=== PATIENT | female | born 1990 | race Caucasian/White ===

== ENCOUNTER 2016-09-26 00:50 | Emergency (ER) | payer OTHER ==
[~2016-09-26] VITALS: Ht 160 cm; Wt 97.8 kg
[~2016-09-26 00:50] MED LIST: CYCL-36 PO; IBUP800 PO; ZOLO25TA PO
[2016-09-26 00:59] VITALS: BP 122/85; PULSE 83; RESP 18; TEMP 97.8; O2SAT 97
[2016-09-26] MEDS ORDERED: TEGR200T PO (01:16)
--- NOTE | 2016-09-26 01:40 | PD ---
HPI Chief Complaint: Complaint Time Seen by Provider: 01:35 Travel History International Travel<30 days: No Contact w/Intl Traveler<30days: No Traveled to known affect area: No History of Present Illness HPI The patient is a 25-year-old female that was seen by her primary care physician , Dr. Genao, on the third of this month. She had 2 doses of Bactrim DS. She complains of rib pain in the left upper abdomen, a sharp pain and she is worried that she may be getting worse with a urine infection. She does have slight nausea but no fever, chills, vomiting or diarrhea. PFSH Past Medical History ADHD: No Bipolar Disorder: Yes Depression: Yes Cancer: No Diabetes: No Diminished Hearing: No Psychiatric: Yes ("BEHAVIORAL") Immunizations Current: Yes Migraines: Yes (EVERY DAY) Seizures: Yes (x1) Thyroid Disease: No Ulcer: No Tetanus Vaccination: Unknown ?: Unknown LMP: "last month", not sure exact time Past Surgical History Appendectomy: No Cholecystectomy: No Other Surgery: No Social History Alcohol Use: No Tobacco Use: Yes (states I smoke only someones cigs) Substance Use: No Allergies-Medications (Allergen,Severity, Reaction): Coded Allergies: No Known Allergies (Verified , 09/26/16) Reported Meds & Prescriptions Reported Meds & Active Scripts Active Reported Tegretol (Carbamazepine) 200 Mg Tab 200 Mg PO BID Review of Systems Except as stated in HPI: all other systems reviewed are Neg Physical Exam Narrative GENERAL: Well-nourished, well-developed patient in slight apparent distress with her left anterior rib pain. Her vital signs are normal. SKIN: Focused skin assessment warm/dry. HEAD: Normocephalic. EYES: No scleral icterus. No injection or drainage. NECK: Supple, trachea midline. No JVD or lymphadenopathy. CARDIOVASCULAR: Regular rate and rhythm without murmurs, gallops, or rubs. I can completely reproduce the patient's pain by pressing on the ends of the left lower ribs anteriorly. RESPIRATORY: Breath sounds equal bilaterally. No accessory muscle use. Lungs are clear to auscultation. GASTROINTESTINAL: Abdomen soft, non-tender, nondistended. No guarding or rebound is present. There is no flank tenderness present. MUSCULOSKELETAL: No cyanosis, or edema. BACK: Nontender without obvious deformity. No CVA tenderness. Data Data Last Documented VS Vital Signs Date Time Temp Pulse Resp B/P Pulse Ox O2 Delivery O2 Flow Rate FiO2 09/26/16 00:59 97.8 83 18 122/85 97 MDM Medical Decision Making Medical Screen Exam Complete: Yes Emergency Medical Condition: Yes Medical Record Reviewed: Yes Differential Diagnosis End of rib pain, fractured ribsunlikely, pneumonia, pyelonephritis Narrative Course The patient has tenderness on the end of the ribs. There is no evidence for fracture ribs, there is no trauma. Her lungs are clear and she does not have the clinical features of pneumonia. There is no flank tenderness and the patient at this time does not manifest symptoms of pyelonephritis. Diagnosis Primary Impression: Rib pain on left side Additional Impression: Cystitis Additional Instructions: Take the Motrin regular, 1 tablet 3 times daily. Follow-up next week with your primary care physician. Increase your liquid intake to establish a good urine flow through your kidneys. Med/Other Pt SpecificInfo: Prescription(s) given ([place]) Scripts Ibuprofen 600 Mg Lcc812 Mg PO TID #33 TAB Ref 0 Prov:Dillan Short MD 09/26/16 Disposition: 01 DISCHARGE HOME Condition: Stable Dillan Short MD Sep 26, 2016 01:40
[2016-09-26] MEDS ORDERED: IBUP-232 PO (01:44)
[2016-09-26] MEDS ORDERED: KETOROLAC TROMETHAMINE 60 MG/2 ML (IM) VIAL IM ONE (02:00)
== END 2016-09-26 02:04 | disposition home or self-care (01) ==
LOC: PHED 00:50
DX: R07.81 Pleurodynia (principal); N30.90 Cystitis, unspecified without hematuria; F31.9 Bipolar disorder, unspecified
CPT/HCPCS: 96372; 99284; J1885

== ENCOUNTER 2016-10-15 02:37 | Emergency (ER) | payer OTHER ==
[~2016-10-15] VITALS: Ht 160 cm; Wt 96.0 kg
[~2016-10-15 02:37] MED LIST changes: -CYCL-36 PO; +IBUP-232 PO; -IBUP800 PO; +TEGR200T PO; -ZOLO25TA PO
[2016-10-15 02:41] VITALS: BP 167/97; PULSE 73; RESP 16; TEMP 98.6; O2SAT 99
--- NOTE | 2016-10-15 04:26 | PD ---
HPI Chief Complaint: Complaint Time Seen by Provider: 04:11 Travel History International Travel<30 days: No Contact w/Intl Traveler<30days: No Traveled to known affect area: No History of Present Illness HPI 25 year-old female presents to the emergency department by private transportation for evaluation of UTI. Patient states she's been treated for urinary tract infection 3 weeks post still complains of urinary frequency. Patient is concerned she is . She denies fever chills nausea vomiting flank pain urgency or dysuria. Patient does not recall the name of for antibiotic. Patient has history of seizure disorder and anxiety depression and is prescribed Tegretol. Patient is not aware of when her last menstrual period occurred. Patient is unable to identify exacerbating or alleviating factors. Patient does not report any abnormal vaginal bleeding or discharge. PFSH Past Medical History Narrative Medical Bipolar disorder depression seizure migraine; no surgery; tobacco use ADHD: No Bipolar Disorder: Yes Depression: Yes Cancer: No Cardiovascular Problems: No Diabetes: No Diminished Hearing: No Psychiatric: Yes ("BEHAVIORAL") Immunizations Current: Yes Migraines: Yes (EVERY DAY) Seizures: Yes (x1) Thyroid Disease: No Ulcer: No ?: Not Past Surgical History Appendectomy: No Cholecystectomy: No Other Surgery: No Social History Alcohol Use: No Tobacco Use: Yes (states I smoke only someones cigs) Substance Use: No Allergies-Medications (Allergen,Severity, Reaction): Coded Allergies: No Known Allergies (Verified , 10/15/16) Reported Meds & Prescriptions Reported Meds & Active Scripts Active Ibuprofen 600 Mg Tab 600 Mg PO TID Reported Tegretol (Carbamazepine) 200 Mg Tab 200 Mg PO BID Review of Systems Except as stated in HPI: all other systems reviewed are Neg General / Constitutional: No: Fever, Chills HENT: No: Congestion Cardiovascular: No: Chest Pain or Discomfort Respiratory: No: Shortness of Breath Gastrointestinal: No: Nausea, Vomiting, Abdominal Pain Genitourinary: Positive: Frequency, No: Urgency, Dysuria, Flank Pain, Vaginal Bleeding Musculoskeletal: No: Myalgias, Arthralgias Skin: No Rash Neurologic: No: Weakness Psychiatric: No: Anxiety Hematologic/Lymphatic: No: Lymph Node Enlargement Physical Exam Narrative GENERAL: Well-developed well-nourished female in no acute distress no respiratory distress SKIN: Warm and dry. HEAD: Normocephalic. EYES: No scleral icterus. No injection or drainage. NECK: Supple, trachea midline. No JVD or lymphadenopathy. CARDIOVASCULAR: Regular rate and rhythm without murmurs, gallops, or rubs. RESPIRATORY: Breath sounds equal bilaterally. No accessory muscle use. GASTROINTESTINAL: Abdomen soft, non-tender, nondistended. MUSCULOSKELETAL: No cyanosis, or edema. BACK: Nontender without obvious deformity. No CVA tenderness. Data Data Last Documented VS Vital Signs Date Time Temp Pulse Resp B/P Pulse Ox O2 Delivery O2 Flow Rate FiO2 10/15/16 02:41 98.6 73 16 167/97 99 Room Air Orders Ed Urine Pregnancytest Poc (10/15/16 04:11) Urinalysis - C+S If Indicated (10/15/16 04:11) Labs Laboratory Tests Test 10/15/16 04:15 Urine Color LIGHT-YELLOW Urine Turbidity CLEAR Urine pH 6.5 Urine Specific [place] 1.004 Urine Protein NEG mg/dL Urine Glucose (UA) NEG mg/dL Urine Ketones NEG mg/dL Urine Occult Blood NEG Urine Nitrite NEG Urine Bilirubin NEG Urine Urobilinogen LESS THAN 2.0 MG/DL Urine Leukocyte Esterase SMALL Urine RBC 2 /hpf Urine WBC 2 /hpf Urine Squamous Epithelial 1 /hpf Cells Urine Bacteria RARE /hpf Microscopic Urinalysis Comment CULT NOT INDICATED MDM Medical Decision Making Medical Screen Exam Complete: Yes Emergency Medical Condition: Yes Medical Record Reviewed: Yes Interpretation(s) [id number] hCG: Negative Urinalysis: Small leukocyte Estrace rare bacteria, culture not indicated; no glucose no ketones Differential Diagnosis Urinary frequency, UTI, diabetes, Narrative Course Specimen collected for urinalysis and [id number] Diagnosis Primary Impression: Urinary frequency Referrals: Primary Care Physician call for appointment Patient Instructions: General Instructions Additional Instructions: Increase fluid hydration Follow-up with primary care provider Return to the emergency department for any concerns or change in condition Disposition: 01 DISCHARGE HOME Condition: Stable Maria Del Carmen Bowen MD Oct 15, 2016 04:26
[2016-10-15 04:27] LABS: BACTERIA, URINE RARE /hpf; BLOOD, URINE NEG (NEG); COMMENT (UR) CULT NOT INDICATED; CULTURE IF INDICATED CULT NOT INDICATED; GLUCOSE,URINE NEG (NEG); KETONE, URINE NEG (NEG); NITRITE,URINE NEG (NEG); PH, URINE 6.5 (5.0-8.5); SQUAMOUS EPITHELIAL CELL URINE 1 /hpf (0-5); URINE COLOR LIGHT-YELLOW (YELLW/STRAW)
== END 2016-10-15 04:39 | disposition home or self-care (01) ==
LOC: NEPC 02:37
DX: R35.0 Frequency of micturition (principal); G40.909 Epilepsy, unspecified, not intractable, without status epilepticus; F41.9 Anxiety disorder, unspecified; F31.9 Bipolar disorder, unspecified; F17.210 Nicotine dependence, cigarettes, uncomplicated; Z79.899 Other long term (current) drug therapy
CPT/HCPCS: 81001; 84703; 99283

== ENCOUNTER 2017-02-12 16:03 | Emergency (ER) | payer OTHER ==
[~2017-02-12] VITALS: Ht 160 cm; Wt 95.0 kg
[2017-02-12 16:05] VITALS: BP 180/76; PULSE 68; RESP 17; TEMP 98.6; O2SAT 100
[2017-02-12 16:13] VITALS: BP 136/86; PULSE 84; RESP 16; O2SAT 100
[2017-02-12 16:19] VITALS: BP 136/86; PULSE 79; RESP 16; O2SAT 100
[2017-02-12] MEDS ORDERED: SODIUM CHLORIDE 0.9% FLUSH 10 ML FLUSH IV FLUSH PRN (16:45)
--- NOTE | 2017-02-12 16:48 | PD ---
HPI Chief Complaint: Abdominal Pain Time Seen by Provider: 16:44 Travel History International Travel<30 days: No Contact w/Intl Traveler<30days: No Traveled to known affect area: No History of Present Illness HPI 26-year-old female presents to the ED for evaluation of abdominal pain with several bowel movements accompanied by palpitations of her heart and pain in the throat that radiates to the chest. Belly pain rated 8/10 maximally, described as cramping, resolved on presentation. She states that she woke up yesterday with the stomachache and had multiple nonbloody bowel movements. She doesn't know if these were loose are well formed. Having a bowel movement did not relieve her pain. She states that eventually her pain just faded away. She states that later she began to feel pain in her throat that radiated down into her chest and was accompanied by palpitations. She endorses similar symptoms with previous episodes of anxiety. She denies any pain on presentation. She denies risk of , states last menstrual period . PFSH Past Medical History ADHD: No Bipolar Disorder: Yes Depression: Yes Cancer: No Cardiovascular Problems: No Diabetes: No Diminished Hearing: No Psychiatric: Yes ("BEHAVIORAL") Immunizations Current: Yes Migraines: Yes (EVERY DAY) Seizures: Yes (x1) Thyroid Disease: No Ulcer: No Influenza Vaccination: No ?: Not LMP: 02/03/2017 Past Surgical History Surgical History: No Previous Surgery Appendectomy: No Cholecystectomy: No Other Surgery: No Social History Alcohol Use: No Tobacco Use: No Substance Use: No Allergies-Medications (Allergen,Severity, Reaction): Coded Allergies: No Known Allergies (Verified Adverse Reaction, Unknown, 02/12/17) Reported Meds & Prescriptions Reported Meds & Active Scripts Active Reported Tegretol (Carbamazepine) 200 Mg Tab 200 Mg PO BID Review of Systems Except as stated in HPI: all other systems reviewed are Neg Physical Exam Narrative GENERAL: Well-nourished, well-developed white female in no acute distress. SKIN: Focused skin assessment warm/dry. HEAD: Normocephalic. EYES: No scleral icterus. No injection or drainage. NECK: Supple, trachea midline. No JVD or lymphadenopathy. CARDIOVASCULAR: Regular rate and rhythm without murmurs, gallops, or rubs. CHEST: Nontender throughout without deformity or crepitus. RESPIRATORY: Breath sounds clear and equal bilaterally. No accessory muscle use. GASTROINTESTINAL: Abdomen soft, non-tender, nondistended. No palpable masses. Active bowel sounds. MUSCULOSKELETAL: No cyanosis, or edema. BACK: Nontender without obvious deformity. No CVA tenderness. Data Data Last Documented VS Vital Signs Date Time Temp Pulse Resp B/P (MAP) Pulse Ox O2 Delivery O2 Flow Rate FiO2 02/12/17 19:00 73 16 132/72 (92) 98 Room Air 02/12/17 16:05 98.6 Orders Orders Complete Blood Count With Diff (02/12/17 16:44) Comprehensive Metabolic Panel (02/12/17 16:44) Lipase (02/12/17 16:44) Urinalysis - C+S If Indicated (02/12/17 16:44) Iv Access Insert/Monitor (02/12/17 16:44) Ecg Monitoring (02/12/17 16:44) Oximetry (02/12/17 16:44) Sodium Chloride 0.9% Flush (Ns Flush) (02/12/17 16:45) Electrocardiogram (02/12/17 16:44) Ed Urine Pregnancytest Poc (02/12/17 16:44) Potassium Chloride (Kcl) (02/12/17 19:00) Calcium Carbonate (Oscal) (02/12/17 19:00) Urine Culture (02/12/17 19:45) Nitrofurantoin Monohyd Macrocr (Macrobid (02/12/17 20:30) Labs Laboratory Tests Test 02/12/17 17:40 02/12/17 19:45 White Blood Count 5.2 TH/MM3 Red Blood Count 4.70 MIL/MM3 Hemoglobin 13.7 GM/DL Hematocrit 41.1 % Mean Corpuscular Volume 87.4 FL Mean Corpuscular Hemoglobin 29.2 PG Mean Corpuscular Hemoglobin Concent 33.4 % Red Cell Distribution Width 13.4 % Platelet Count 133 TH/MM3 Mean Platelet Volume 11.7 FL Neutrophils (%) (Auto) 43.5 % Lymphocytes (%) (Auto) 43.1 % Monocytes (%) (Auto) 11.0 % Eosinophils (%) (Auto) 2.1 % Basophils (%) (Auto) 0.3 % Neutrophils # (Auto) 2.3 TH/MM3 Lymphocytes # (Auto) 2.2 TH/MM3 Monocytes # (Auto) 0.6 TH/MM3 Eosinophils # (Auto) 0.1 TH/MM3 Basophils # (Auto) 0.0 TH/MM3 CBC Comment DIFF FINAL Differential Comment Blood Urea Nitrogen 14 MG/DL Creatinine 0.92 MG/DL Random Glucose 86 MG/DL Total Protein 7.6 GM/DL Albumin 3.7 GM/DL Calcium Level 7.2 MG/DL Alkaline Phosphatase 77 U/L Aspartate Amino Transf (AST/SGOT) 19 U/L Alanine Aminotransferase (ALT/SGPT) 28 U/L Total Bilirubin 0.3 MG/DL Sodium Level 138 MEQ/L Potassium Level 3.1 MEQ/L Chloride Level 103 MEQ/L Carbon Dioxide Level 26.6 MEQ/L Anion Gap 8 MEQ/L Estimat Glomerular Filtration Rate 75 ML/MIN Protein Corrected Calcium 7.0 MG/DL Lipase 244 U/L Urine Color LIGHT-YELLOW Urine Turbidity HAZY Urine pH 6.0 Urine Specific [place] 1.010 Urine Protein NEG mg/dL Urine Glucose (UA) NEG mg/dL Urine Ketones NEG mg/dL Urine Occult Blood NEG Urine Nitrite NEG Urine Bilirubin NEG Urine Urobilinogen LESS THAN 2.0 MG/DL Urine Leukocyte Esterase MOD Urine RBC 1 /hpf Urine WBC 14 /hpf Urine Squamous Epithelial Cells 6 /hpf Urine Bacteria RARE /hpf Microscopic Urinalysis Comment CULTURE INDICATED MDM Medical Decision Making Medical Screen Exam Complete: Yes Emergency Medical Condition: Yes Differential Diagnosis Anxiety versus gastritis versus palpitations versus electrolyte abnormality versus other Narrative Course 26-year-old female presents to the ED for evaluation of abdominal pain with several bowel movements accompanied by palpitations of her heart and pain in the throat that radiates to the chest. Belly pain rated 8/10 maximally, described as cramping, resolved on presentation. She states that later she began to feel pain in her throat that radiated down into her chest and was accompanied by palpitations. She endorses similar symptoms with previous episodes of anxiety. She denies any pain on presentation. She denies risk of , states last menstrual period 02/03/17. Vitals reviewed. Physical exam is reassuring. EKG rate 67, sinus rhythm. LA interval 166, QRS 87, QTC 423. Normal axis. No acute ST changes. Reviewed by Dr. House. Urine test negative. CBC: WBC 5.2. Hemoglobin 13.7. CMP potassium 3.1. Calcium protein corrected 7.0. Patient was administered 1 g of calcium and 40 mEq potassium by mouth. UA: Hazy, moderate leukocyte esterase, WBCs 14, rare bacteria. Culture pending. I discussed the results of the workup with the patient. Patient was prescribed Macrobid 100 mg twice a day 7 days. First dose administered in the ED. She is instructed to eat a varied diet, consider daily supplement, take all antibiotics as prescribed, follow-up with the primary care provider. I warned her that calcium could cause constipation and she should take MiraLAX to counteract this. She indicated understanding of the instructions and is agreeable to the care plan. The patient is stable and discharged home. Diagnosis Primary Impression: Palpitations Additional Impressions: Hypocalcemia Hypokalemia UTI (urinary tract infection) Qualified Codes: N39.0 - Urinary tract infection, site not specified Referrals: Primary Care Physician Additional Instructions: Rest, hydrate. Return to normal, gentle activity as tolerated. Eat a varied diet. Consider a daily vitamin supplement. If you take calcium supplements, take Miralax to counteract constipation. Take all antibiotics as prescribed. Follow-up with your primary care provider. Return to the ED for worsening symptoms or any urgent or emergent medical condition. Med/Other Pt SpecificInfo: Prescription(s) given Scripts Nitrofurantoin Monohydrate Macrocrystals (Macrobid) 100 Mg Cap 100 MG PO BID for Infection for 7 Days, #14 CAP 0 Refills Prov: Humaira House MD 02/12/17 Disposition: 01 DISCHARGE HOME Condition: Stable Lina Elmore Feb 12, 2017 16:47
[2017-02-12 18:49] LABS: BICARBONATE 26.6 MEQ/L (21.0-32.0); POTASSIUM 3.1 MEQ/L (3.5-5.1); TOTAL BILIRUBIN ADULT 0.3 MG/DL (0.2-1.0)
[2017-02-12 18:58] LABS: AUTOMATED NEUTROPHIL # 2.3 TH/MM3 (1.8-7.7); BASOPHIL % 0.3 % (0.0-2.0); EOSINOPHIL # 0.1 TH/MM3 (0-0.4); EOSINOPHIL % 2.1 % (0.0-4.0); HEMATOCRIT 41.1 % (35.0-46.0); HEMO FLAGS DIFF FINAL; LYMPH % 43.1 % (9.0-44.0); LYMPHOCYTE # 2.2 TH/MM3 (1.0-4.8); MEAN CELL VOLUME 87.4 FL (80.0-100.0); MEAN CORPUSCULAR HEMOGLOBIN 29.2 PG (27.0-34.0); MEAN CORPUSCULAR HGB CONC 33.4 % (32.0-36.0); NEUT % 43.5 % (16.0-70.0); PLATELET COUNT 133 TH/MM3 (150-450); RED CELL DISTRIBUTION WIDTH 13.4 % (11.6-17.2); WHITE BLOOD COUNT 5.2 TH/MM3 (4.0-11.0)
[2017-02-12 19:00] VITALS: BP 132/72; PULSE 73; RESP 16; O2SAT 98
[2017-02-12] MEDS ORDERED: CALCIUM CARBONATE 1.25 GM (CA 500 MG) TAB PO ONE (19:00)
[2017-02-12] MEDS ORDERED: POTASSIUM CHLORIDE 20 MEQ CONTROLLED RELEASE TAB PO ONE (19:00)
[2017-02-12 19:59] LABS: BACTERIA, URINE RARE /hpf; BLOOD, URINE NEG (NEG); COMMENT (UR) CULTURE INDICATED; CULTURE IF INDICATED CULTURE INDICATED; GLUCOSE,URINE NEG (NEG); KETONE, URINE NEG (NEG); NITRITE,URINE NEG (NEG); SQUAMOUS EPITHELIAL CELL URINE 6 /hpf (0-5); URINE COLOR LIGHT-YELLOW (YELLW/STRAW)
[2017-02-12] MEDS ORDERED: MACR100C2 PO (20:23)
[2017-02-12] MEDS ORDERED: NITROFURANTOIN MONOHYD MACROCR 100 MG CAP PO ONE (20:30)
--- NOTE | 2017-02-13 17:56 | EKG ---
Date Performed: 02/12/2017 Time Performed: 16:50:44 PTAGE: 26 years EKG: Sinus rhythm NONSPECIFIC T-WAVE ABNORMALITY BORDERLINE ECG NO PREVIOUS TRACING DOCTOR: Steven Martin Interpretating Date/Time 02/13/2017 17:54:46
== END 2017-02-12 21:04 | disposition home or self-care (01) ==
LOC: NEPC 16:03
DX: R00.2 Palpitations (principal); E83.51 Hypocalcemia; E87.6 Hypokalemia; N39.0 Urinary tract infection, site not specified; B96.89 Other specified bacterial agents as the cause of diseases classified elsewhere; R94.31 Abnormal electrocardiogram [ECG] [EKG]; F41.9 Anxiety disorder, unspecified; F31.9 Bipolar disorder, unspecified; R56.9 Unspecified convulsions
CPT/HCPCS: 80053; 81001; 83690; 84703; 85025; 87086; 93005; 99284

== ENCOUNTER 2017-07-14 23:37 | Inpatient (IN) | payer OTHER ==
[~2017-07-14] VITALS: Ht 160 cm; Wt 101.5 kg
[~2017-07-14 23:37] MED LIST changes: -IBUP-232 PO; +MACR100C2 PO
[2017-07-14 23:47] VITALS: BP 174/105; PULSE 113; RESP 19; TEMP 98.4; O2SAT 99
--- NOTE | 2017-07-14 23:52 | PD ---
HPI Chief Complaint: Psychiatric Symptoms Time Seen by Provider: 23:51 Travel History International Travel<30 days: No Contact w/Intl Traveler<30days: No Traveled to known affect area: No History of Present Illness HPI 26-year-old female with history of bipolar disorder presents emergency department under [place] act for psychiatric evaluation. Patient states that she has been more depressed lately and has had suicidal thoughts. She does have an active plan. She does not want to discuss this at this time. Reports methamphetamine use recently. Denies any other illicit drug use. Patient has no acute medical needs at this time. [facility] Past Medical History ADHD: No Asthma: No Bipolar Disorder: Yes Depression: Yes Cancer: No Cardiovascular Problems: No Diabetes: No Diminished Hearing: No Psychiatric: Yes ("BEHAVIORAL") Immunizations Current: Yes Migraines: Yes (EVERY DAY) Seizures: Yes (x1) Thyroid Disease: No Ulcer: No ?: Unknown Past Surgical History Appendectomy: No Cholecystectomy: No Other Surgery: No Social History Alcohol Use: No Tobacco Use: No Substance Use: No Allergies-Medications (Allergen,Severity, Reaction): Coded Allergies: No Known Allergies (Verified Adverse Reaction, Unknown, 07/14/17) Reported Meds & Prescriptions Reported Meds & Active Scripts Active Reported Tegretol (Carbamazepine) 200 Mg Tab 200 Mg PO BID Review of Systems Except as stated in HPI: all other systems reviewed are Neg Physical Exam Narrative GENERAL: Well-nourished female patient, tearful but in no acute distress. SKIN: Focused skin assessment warm/dry. HEAD: Atraumatic. Normocephalic. EYES: Pupils equal and round. No scleral icterus. No injection or drainage. ENT: No nasal bleeding or discharge. Mucous membranes pink and moist. NECK: Trachea midline. No JVD. CARDIOVASCULAR: Regular rate and rhythm. No murmur appreciated. RESPIRATORY: No accessory muscle use. Clear to auscultation. Breath sounds equal bilaterally. GASTROINTESTINAL: Abdomen soft, non-tender, nondistended. Hepatic and splenic margins not palpable. MUSCULOSKELETAL: No obvious deformities. No clubbing. No cyanosis. No edema. NEUROLOGICAL: Awake and alert. No obvious cranial nerve deficits. Motor grossly within normal limits. Normal speech. Data Data Last Documented VS Vital Signs Date Time Temp Pulse Resp B/P (MAP) Pulse Ox O2 Delivery O2 Flow Rate FiO2 07/14/17 23:47 98.4 113 19 174/105 (128) 99 Orders Orders Complete Blood Count With Diff (07/14/17 23:51) Thyroid Stimulating Hormone (07/14/17 23:51) Basic Metabolic Panel (Bmp) (07/14/17 23:51) Ed Urine Pregnancytest Poc (07/14/17 23:51) Psych Screen (07/14/17 23:51) Drug Screen, Random Urine (07/14/17 23:51) Alcohol (Ethanol) (07/14/17 23:51) Diet Regular Basic (07/15/17 Breakfast) Labs Laboratory Tests Test 07/15/17 00:00 White Blood Count 6.7 TH/MM3 Red Blood Count 4.35 MIL/MM3 Hemoglobin 13.1 GM/DL Hematocrit 38.3 % Mean Corpuscular Volume 88.0 FL Mean Corpuscular Hemoglobin 30.0 PG Mean Corpuscular Hemoglobin Concent 34.1 % Red Cell Distribution Width 13.0 % Platelet Count 143 TH/MM3 Mean Platelet Volume 12.0 FL Neutrophils (%) (Auto) 54.0 % Lymphocytes (%) (Auto) 33.7 % Monocytes (%) (Auto) 9.8 % Eosinophils (%) (Auto) 2.1 % Basophils (%) (Auto) 0.4 % Neutrophils # (Auto) 3.6 TH/MM3 Lymphocytes # (Auto) 2.3 TH/MM3 Monocytes # (Auto) 0.7 TH/MM3 Eosinophils # (Auto) 0.1 TH/MM3 Basophils # (Auto) 0.0 TH/MM3 CBC Comment DIFF FINAL Differential Comment Blood Urea Nitrogen 8 MG/DL Creatinine 0.94 MG/DL Random Glucose 125 MG/DL Calcium Level 7.8 MG/DL Sodium Level 142 MEQ/L Potassium Level 3.7 MEQ/L Chloride Level 105 MEQ/L Carbon Dioxide Level 28.2 MEQ/L Anion Gap 9 MEQ/L Estimat Glomerular Filtration Rate 73 ML/MIN Thyroid Stimulating Hormone 3rd Gen 5.270 uIU/ML Urine Opiates Screen NEG Urine Barbiturates Screen NEG Urine Amphetamines Screen POS Urine Benzodiazepines Screen NEG Urine Cocaine Screen NEG Urine Cannabinoids Screen NEG Ethyl Alcohol Level LESS THAN 3 MG/DL MDM Medical Decision Making Medical Screen Exam Complete: Yes Emergency Medical Condition: Yes Medical Record Reviewed: Yes Differential Diagnosis Mood disorder versus personality disorder versus adjustment reaction disorder Narrative Course 26-year-old female presents emergency department for evaluation under [place] act. Patient appears without distress. Vital signs are stable. Laboratory Tests Test 07/15/17 00:00 White Blood Count 6.7 TH/MM3 Red Blood Count 4.35 MIL/MM3 Hemoglobin 13.1 GM/DL Hematocrit 38.3 % Mean Corpuscular Volume 88.0 FL Mean Corpuscular Hemoglobin 30.0 PG Mean Corpuscular Hemoglobin Concent 34.1 % Red Cell Distribution Width 13.0 % Platelet Count 143 TH/MM3 Mean Platelet Volume 12.0 FL Neutrophils (%) (Auto) 54.0 % Lymphocytes (%) (Auto) 33.7 % Monocytes (%) (Auto) 9.8 % Eosinophils (%) (Auto) 2.1 % Basophils (%) (Auto) 0.4 % Neutrophils # (Auto) 3.6 TH/MM3 Lymphocytes # (Auto) 2.3 TH/MM3 Monocytes # (Auto) 0.7 TH/MM3 Eosinophils # (Auto) 0.1 TH/MM3 Basophils # (Auto) 0.0 TH/MM3 CBC Comment DIFF FINAL Differential Comment Blood Urea Nitrogen 8 MG/DL Creatinine 0.94 MG/DL Random Glucose 125 MG/DL Calcium Level 7.8 MG/DL Sodium Level 142 MEQ/L Potassium Level 3.7 MEQ/L Chloride Level 105 MEQ/L Carbon Dioxide Level 28.2 MEQ/L Anion Gap 9 MEQ/L Estimat Glomerular Filtration Rate 73 ML/MIN Thyroid Stimulating Hormone 3rd Gen 5.270 uIU/ML Urine Opiates Screen NEG Urine Barbiturates Screen NEG Urine Amphetamines Screen POS Urine Benzodiazepines Screen NEG Urine Cocaine Screen NEG Urine Cannabinoids Screen NEG Ethyl Alcohol Level LESS THAN 3 MG/DL Patient is medically cleared to undergo psychiatric screening for further evaluation and disposition. Diagnosis Primary Impression: Adjustment reaction Qualified Codes: F43.23 - Adjustment disorder with mixed anxiety and depressed mood Condition: Stable Imelda Lamb Jul 14, 2017 23:52
[2017-07-15 00:30] LABS: AUTOMATED NEUTROPHIL # 3.6 TH/MM3 (1.8-7.7); BASOPHIL % 0.4 % (0.0-2.0); EOSINOPHIL # 0.1 TH/MM3 (0-0.4); EOSINOPHIL % 2.1 % (0.0-4.0); HEMATOCRIT 38.3 % (35.0-46.0); HEMOGLOBIN 13.1 GM/DL (11.6-15.3); LYMPH % 33.7 % (9.0-44.0); LYMPHOCYTE # 2.3 TH/MM3 (1.0-4.8); MEAN CORPUSCULAR HGB CONC 34.1 % (32.0-36.0); MONO % 9.8 % (0.0-8.0); MONOCYTE # 0.7 TH/MM3 (0-0.9); PLATELET COUNT 143 TH/MM3 (150-450); RED BLOOD COUNT 4.35 MIL/MM3 (4.00-5.30); WHITE BLOOD COUNT 6.7 TH/MM3 (4.0-11.0)
[2017-07-15 00:58] LABS: BICARBONATE 28.2 MEQ/L (21.0-32.0); BLOOD UREA NITROGEN 8 MG/DL (7-18); CALCIUM 7.8 MG/DL (8.5-10.1); CHLORIDE 105 MEQ/L (98-107); CREATININE 0.94 MG/DL (0.50-1.00); GLOMERULAR FILTRATION RATE 73 ML/MIN (>89); GLUCOSE,RANDOM 125 MG/DL (74-106); SODIUM (NA) 142 MEQ/L (136-145)
[2017-07-15 06:07] VITALS: BP 99/57; PULSE 92; RESP 16; TEMP 98.9; O2SAT 98
[2017-07-15] MEDS ORDERED: BENZTROPINE MESYLATE 2 MG/2 ML VIAL IM PRN (11:45)
[2017-07-15] MEDS ORDERED: NICOTINE 21 MG/24 HR PATCH T-DERMAL PRN (11:45)
[2017-07-15] MEDS ORDERED: hydrOXYzine HCL 50 MG TAB PO PRN (11:45)
[2017-07-15] MEDS ORDERED: ALUMINUM/MAGNESIUM/SIMETH 30 ML CUP PO PRN (11:45)
[2017-07-15] MEDS ORDERED: ACETAMINOPHEN 325 MG TAB PO PRN (11:45)
[2017-07-15] MEDS ORDERED: BENZTROPINE MESYLATE 1 MG TAB PO PRN (11:45)
[2017-07-15] MEDS ORDERED: MAGNESIUM HYDROXIDE SUSP 30 ML CUP PO PRN (11:45)
--- NOTE | 2017-07-15 12:29 | MH ---
cc: Juan R Bashir MD DATE OF ADMISSION: 07/15/2017 ADMITTING DIAGNOSES: 1. Bipolar depression, F31.30. 2. Amphetamine abuse, F15.10. LEGAL STATUS: The patient is capacitated to consent for admission and for medication/treatment. Voluntary status. HISTORY OF PRESENT ILLNESS: Ms. Estrada is a 26-year-old female with a reported history of bipolar illness who presents under a L[place] Act from law enforcement alleging that the patient contacted the suicide hotline and said that she wanted to hurt herself. In particular, she alleged that she wanted to smother herself. Of note, patient's urine toxicology is positive for amphetamines. Reviewing the electronic medical record, I note that the patient was admitted to the [facility] in [address] Rodriguez, and the diagnosis on discharge at that time was depressive disorder, not otherwise specified. The patient is seen and examined. Chart reviewed. Case discussed with nursing staff. On my examination this morning, the patient presents as somewhat childlike. Some degree of borderline intellectual functioning is possible. She reports that she has been feeling depressed and "very empty" since her grandfather's passing on the of this month. She reports that in addition to low mood she has been experiencing sleep disturbance, hopelessness, worthlessness. She also reports occasionally hearing a muffled voice of a young girl, and she cannot make out what the girl is saying. She notes "all I do is cry." She reports that she has been having suicidal ideation with plan to suffocate herself. She contracts for safety on the inpatient unit. No homicidal ideation. No hypomanic or manic symptoms presently. She denies any other hallucinatory material. No delusions elicited. Remainder of the psychiatric ROS is negative. No acute physical complaints. PAST PSYCHIATRIC HISTORY: The patient reports history of bipolar illness. She is reportedly prescribed carbamazepine, both for mood stabilization and for seizure by her primary care doctor. She is not under the care of a psychiatrist. Most recent psychiatric admission was here under Dr. Rodriguez. She reports one previous suicide attempt by overdose in 2016. She denies a history of violent behavior. FAMILY HISTORY: The patient denies family history of mental illness or suicide. CHEMICAL DEPENDENCY HISTORY: The patient reports use of methamphetamine "only when my friends" provide it to her. SOCIAL HISTORY: The patient lives with her mother. She is single with no children. She is applying for disability. She is high school educated. Denies any or legal history. Denies any access to guns or firearms. She describes herself as "somewhat" episcopal. She denies any history of abuse. PAST MEDICAL HISTORY: Patient reports a history of seizure disorder. Last time she took a seizure was reportedly in 2016. MEDICATIONS: Patient takes carbamazepine 200 mg twice daily. ALLERGIES: NO KNOWN ALLERGIES. REVIEW OF SYSTEMS: Except as noted in the HPI, this is negative. PHYSICAL EXAMINATION: VITAL SIGNS: Temperature 98.9, pulse 92, respirations 16, blood pressure 99/57, pulse oximetry 98% on room air. Physical examination completed by ED provider. On my examination today, the patient appears to be in no acute physical distress. No motor abnormalities noted. No ictal activity noted. LABORATORY DATA: Reviewed: CBC reveals mild thrombocytopenia with a platelet count of 143. BMP reveals mildly elevated glucose in a nonfasting sample. Mild hypocalcemia at 7.8. TSH slightly elevated at 5.270. Urine toxicology positive for amphetamines. Alcohol level undetectable. ED point of care test was negative. MENTAL STATUS EXAMINATION: The patient is in hospital attire. She is fairly well groomed and maintaining basic hygiene. She is awake and alert and oriented x 4. No motor abnormalities noted. Speech is within normal limits for rate, tone and volume. Language and fund of knowledge are average to slightly reduced. Focus and concentration are intact. Memory is grossly intact on clinical exam. Mood is depressed but affect is still fairly full and reactive. Thought process linear. No loosening of associations. No delusional material elicited. Reports auditory phenomena as detailed above. Does not appear internally stimulated. No other hallucinatory material. Endorses suicidal ideation with plan as outlined above. No urge to hurt self on inpatient unit. Denies homicidal ideation. Insight and judgment are fair. ASSESSMENT AND PLAN: This is a 26-year-old female with psychiatric history as detailed above, who presents under [place] Act. The patient reports that she has been feeling increasingly depressed following her grandfather's passing about 10 days ago. Although there is likely a component of adjustment reaction, it seems like the patient's depressive symptoms have taken on a life of their own and I fear that the patient is experiencing a depressive episode in the setting of her reported history of bipolar illness. The patient is presently on carbamazepine, both for mood disorder and for seizure. She would likely benefit from addition of another agent for management of mood and perhaps perceptual disturbances as well. The patient requires psychiatric hospitalization at this time for safety, observation, and stabilization. Admit inpatient. Voluntary status. Continue carbamazepine 200 mg twice daily. Check a spot carbamazepine level. Initiate Seroquel 50 mg at bedtime for mood stabilization with plans to titrate to effect. Atarax as needed for anxiety. Cogentin as needed for EPS. Benadryl as needed for sleep. R/B/A for all medications discussed with the patient. Check free T4. Check a CMP, hemoglobin A1C and lipid panel in the morning. Check an EKG for QTc. Vitals every shift. Counselor to see. Disposition planning. ESTIMATED LENGTH OF STAY: Five to seven days. MD NGUYỄN Bowens/TL , 11:59 AM , 12:28 PM BILL
[2017-07-15 17:56] VITALS: BP 124/70; PULSE 60; RESP 18; O2SAT 100
[2017-07-15] MEDS: carBAMazepine 200 MG TAB PO SCH ×2 (19:00→20:32)
[2017-07-15] MEDS: QUEtiapine FUMARATE 100 MG TAB PO SCH (20:32)
[2017-07-15] MEDS ORDERED: diphenhydrAMINE HCL 50 MG CAP PO PRN (21:00)
[2017-07-15 22:26] VITALS: BP 118/68; PULSE 83; RESP 18; TEMP 97.6; O2SAT 97
[2017-07-16] VITALS (8 sets, daily range): BP systolic 66–134; BP diastolic 46–81; PULSE 51–83; RESP 16–20; TEMP 97.9–98.2; O2SAT 96–99
--- NOTE | 2017-07-16 08:21 | HHI.PYPN ---
Subjective Remarks Patient seen and examined with nurse. Chart reviewed. Case discussed with nursing staff. No behavioral issues noted overnight. I responded to a [facility] called this morning regarding patient after she had a probable vasovagal response during blood draw. Patient became briefly hypotensive but blood pressures quickly rebounded and O2 sat remained good throughout. When I evaluate patient after she has been brought to her room, her sensorium is clear. She reports feeling faint when sales representative [employer] tried to draw blood. At the time of my evaluation, the patient is in no acute distress. Psychiatrically , patient reports that she is doing well. She reports her mood is improved. She denies any suicidal or homicidal ideation. She reports her auditory hallucinations are decreased although she is still experiencing "screaming." She denies any command auditory hallucinations. Denies side effects from medications. No acute physical complaints at this point. Review of Systems Except as stated in HPI: all other systems reviewed are Neg Mental Status Examination Appearance: Appropriate Consciousness: Alert Orientation: x4 Motor Activity: Other (No motor abnormalities noted.) Speech: Unremarkable Language: Adequate Fund of Knowledge: Adequate Attention and Concentration: Adequate Memory: Unremarkable Mood: Other (Mood is improved today) Affect: Appropriate (Full and reactive) Thought Process & Associations: Intact, Logical, Linear Thought Content: Appropriate Hallucination Type: Auditory (Screaming, noncommand) Delusion Type: None Suicidal Ideation: No Suicidal Plan: No Suicidal Intention: No Homicidal Ideation: No Homicidal Plan: No Homicidal Intention: No Mental Status Exam Remarks Insight and judgment are fair Results Labs Free T4 within normal limits. Spot carbamazepine level somewhat low. Vitals/IOs Vital Signs Date Time Temp Pulse Resp B/P (MAP) Pulse Ox O2 Delivery O2 Flow Rate FiO2 07/16/17 06:22 97.9 83 16 127/64 (85) 96 07/15/17 17:56 Room Air Assessment & Plan Problem List: (1) Bipolar depression ICD Codes: F31.30 - Bipolar disorder, current episode depressed, mild or moderate severity, unspecified (2) Amphetamine abuse ICD Codes: F15.10 - Other stimulant abuse, uncomplicated Assessment & Plan Psychiatric symptoms are abating. Continue carbamazepine and Seroquel as ordered. I will order q4h vitals and neuro checks through the day today to ensure patient does not experience further hypotension or syncope. Collateral information. Continue to monitor on inpatient unit. Continue other medications and care as ordered. Justification for Cont. Inpt. Complicating condition. Risk for decompensation in less restrictive environment. Discharge Planning Pending stabilization Request HC Surrog/Guard Advoc?: No Juan R Bashir MD Jul 16, 2017 08:21
[2017-07-16 09:01] LABS: ALBUMIN 3.6 GM/DL (3.4-5.0); AST (GOT) 22 U/L (15-37); BICARBONATE 25.7 MEQ/L (21.0-32.0); BLOOD UREA NITROGEN 7 MG/DL (7-18); CALCIUM 8.2 MG/DL (8.5-10.1); CHLORIDE 105 MEQ/L (98-107); CREATININE 0.85 MG/DL (0.50-1.00); GLOMERULAR FILTRATION RATE 82 ML/MIN (>89); GLUCOSE,RANDOM 94 MG/DL (74-106); SODIUM (NA) 138 MEQ/L (136-145)
[2017-07-16 09:02] LABS: ALT (GPT) 31 U/L (10-53); CHOLESTEROL 181 MG/DL (120-200); TRIGLYCERIDES 321 MG/DL (42-150)
[2017-07-16 09:06] LABS: ALKALINE PHOSPHATASE 70 U/L (45-117); CHOLESTEROL/ HDL RATIO 7.09 RATIO; HDL CHOLESTEROL 25.5 MG/DL (40.0-60.0); LDL CHOLESTEROL 91 MG/DL (0-99); TOTAL BILIRUBIN ADULT 0.4 MG/DL (0.2-1.0); TOTAL PROTEIN 7.3 GM/DL (6.4-8.2)
[2017-07-16] MEDS: carBAMazepine 200 MG TAB PO SCH ×2 (09:46→20:34)
[2017-07-16 17:02] LABS: HEMOGLOBIN A1C 5.3 % (4.3-6.0)
[2017-07-16] MEDS: QUEtiapine FUMARATE 100 MG TAB PO SCH (20:34)
--- NOTE | 2017-07-16 23:58 | EKG ---
Date Performed: 07/16/2017 Time Performed: 09:42:54 PTAGE: 26 years EKG: SINUS BRADYCARDIA BORDERLINE ECG PREVIOUS TRACING : 02/12/2017 16.50 Compared to previous tracing, ST/T wave changes are less p rominent DOCTOR: Juan Ramon Mcdaniel Interpretating Date/Time 07/16/2017 23:57:11
[2017-07-17 01:30] VITALS: BP 98/54; PULSE 72; RESP 20
[2017-07-17 05:55] VITALS: BP 95/53; PULSE 69; RESP 16; TEMP 97.8; O2SAT 97
[2017-07-17] MEDS: carBAMazepine 200 MG TAB PO SCH (08:27)
--- NOTE | 2017-07-17 09:26 | PD.TTN ---
Patient Problems 1. Discharge planning 2. Medication compliance 3. Knowledge deficit 4. Lack of coping skills Progress Toward Goals Provider Present: Dr. La Bashir Provider Input: 07/17/17 - Patient is requesting discharge home. Dr. Bashir requested that this counselor obtain collateral information from patient's mother. Psychiatric Counselors Present: DINA Stanton Psych Therapist Input: 07/17/17 - Patient reports that she would like to be discharged home. Counselor has strongly urged the patient to refrain from all substance abuse. Group Spec/RT/OT/SAHU Present: Gary Reeves OT Group Spec/RT/OT/SAHU Input: 07/17/17 - Patient attends groups and is quiet. Additional Input 07/17/17 - Patient will be discharged home when stable. She will follow-up with [facility]. Documentation Scribe: DINA Stanton Date Resolved: Jul 17, 2017 Kaylyn Celis Jul 17, 2017 09:26
[2017-07-17] MEDS ORDERED: SERO50TA PO (12:52)
--- NOTE | 2017-07-17 12:52 | HHI.DS ---
Psychiatry Discharge Summary Inpatient Psychiatric care?: Yes Advance Directive: No Reason Not Provided: DECLINED Mental Health AdvanceDirective: No Health Care Proxy: No Admission Admission Date Jul 15, 2017 at 11:37 Admission Diagnosis: (1) Bipolar depression ICD Code: F31.30 - Bipolar disorder, current episode depressed, mild or moderate severity, unspecified (2) Amphetamine abuse ICD Code: F15.10 - Other stimulant abuse, uncomplicated Brief History Ms. Estrada is a 26-year-old female with a reported history of bipolar illness who presents under a Larson Act from law enforcement alleging that the patient contacted the suicide hotline and said that she wanted to hurt herself. In particular, she alleged that she wanted to smother herself. Of note, patient's urine toxicology is positive for amphetamines. Reviewing the electronic medical record, I note that the patient was admitted to the Child Psych[facility] Unit in [address] Rodriguez, and the diagnosis on discharge at that time was depressive disorder, not otherwise specified. The patient is seen and examined. Chart reviewed. Case discussed with nursing staff. On my examination this morning, the patient presents as somewhat childlike. Some degree of borderline intellectual functioning is possible. She reports that she has been feeling depressed and "very empty" since her grandfather's passing on the of this month. She reports that in addition to low mood she has been experiencing sleep disturbance, hopelessness, worthlessness. She also reports occasionally hearing a muffled voice of a young girl, and she cannot make out what the girl is saying. She notes "all I do is cry." She reports that she has been having suicidal ideation with plan to suffocate herself. She contracts for safety on the inpatient unit. No homicidal ideation. No hypomanic or manic symptoms presently. She denies any other hallucinatory material. No delusions elicited. Remainder of the psychiatric ROS is negative. No acute physical complaints. Tobacco Use In Past 30 Days: No Tobacco Past 30 Days Alcohol Use: Never Hospital Course Patient was admitted to a locked, inpatient psychiatric unit. Appropriate precautions were in place throughout patient's hospital stay. Patient was seen and examined on the unit by psychiatry and also visited by counselor. Psychotropic medications were adjusted. Patient tolerated medication changes well without side effects. Patient had improvement in her presenting psychiatric symptomatology during the course of her hospital stay. Besides an episode of probable vasovagal syncope brought on by a blood draw, the patient's hospital stay passed without incident. There was no evidence of any suicidality or homicidality on the inpatient unit. There was no evidence of self-care deficit. The patient remained in good behavioral control and was compliant with medications. On the day of discharge: Patient seen and examined with nurse. Chart reviewed. Case discussed with nursing staff. No behavioral issues noted overnight. Case discussed in treatment team. Counselor has reached out to the patient's mother who reportedly feels comfortable with the patient being discharged home today. On my examination today, the patient is requesting discharge from the inpatient psychiatric unit today. She feels improved versus admission. Mood is improved, and I can elicit no depressive or hypomanic/manic symptoms. She denies any suicidal or homicidal ideation, intent or plan on direct questioning and contracts for safety. She denies any audiovisual hallucinations. She denies any command auditory hallucinations. I can elicit no delusional material. There is no evidence of any impairment in reality construction. She denies side effects from medications. She notes that the Seroquel helped her with sleep. She has no physical complaints. Suicide and violence risk assessment on day of discharge both suggest lower imminent risk from mental illness, and the patient's level of function is adequate for outpatient care. Patient has maximized benefit from this inpatient psychiatric hospital stay and will be discharged home today with psychiatric follow-up as arranged by counselor. Patient is also to follow up with primary care. I have counseled the patient to abstain from substances of abuse. I have counseled the patient regarding warning signs for need to return to the psychiatric emergency room as part of a general safety plan. Results Blood Pressure 95 / 53 Vital Signs Date Time Temp Pulse Resp B/P (MAP) Pulse Ox O2 Delivery O2 Flow Rate FiO2 07/17/17 05:55 97.8 69 16 95/53 (67) 97 07/15/17 17:56 Room Air Laboratory Tests Test 07/15/17 00:00 07/16/17 07:55 Platelet Count 143 TH/MM3 (150-450) Mean Platelet Volume 12.0 FL (7.0-11.0) Monocytes (%) (Auto) 9.8 % (0.0-8.0) Random Glucose 125 MG/DL (74-106) Calcium Level 7.8 MG/DL (8.5-10.1) 8.2 MG/DL (8.5-10.1) Estimat Glomerular Filtration Rate 73 ML/MIN (>89) 82 ML/MIN (>89) Thyroid Stimulating Hormone 3rd Gen 5.270 uIU/ML (0.358-3.740) Carbamazepine (Tegretol) Level 2.8 MCG/ML (4.0-12.0) Urine Amphetamines Screen POS (NEG) Triglycerides Level 321 MG/DL (42-150) HDL Cholesterol 25.5 MG/DL (40.0-60.0) Laboratory Results Test 07/16/17 07:55 Cholesterol Level 181 MG/DL (120-200) HDL Cholesterol 25.5 MG/DL (40.0-60.0) Hemoglobin A1c 5.3 % (4.3-6.0) LDL Cholesterol 91 MG/DL (0-99) Triglycerides Level 321 MG/DL (42-150) Summary of Procedures None done Imaging None done Pending results at discharge: No Medications # of Antipsychotic meds at D/C: 1 Approp Antipsych med options 1 - Minimum of three failed multiple trials of monotherapy. 2 - Documented plan to taper to monotherapy due to previous use of multiple meds OR cross-taper in progress at D/C. 3 - Documentation of augmentation of Clozapine. 4 - Justification other than those listed in allowable values 1-3, document here : Discharge Discharge Date: Jul 17, 2017 Discharge Diagnosis: (1) Bipolar depression Diagnosis: Principal (stabilized) ICD Code: F31.30 - Bipolar disorder, current episode depressed, mild or moderate severity, unspecified (2) Amphetamine abuse Diagnosis: Secondary (counseled to quit) ICD Code: F15.10 - Other stimulant abuse, uncomplicated Pt Condition on Discharge: Stable Discharge Disposition: Discharge Home Discharge Instructions Diet Instructions: As Tolerated, No Restrictions Activities you can perform: Weight Bearing as Cydney Scheduled Appointment: As per counselors notes New Orders: BASIC METABOLIC PROF - 2-3 Days PLATELET COUNT - 2-3 Days TEGRETOL - 2-3 Days New Medications: Quetiapine (Seroquel) 50 Mg Tab 50 MG PO HS for Mental Health for 15 Days, TAB 1 Refill Continued Medications: Carbamazepine (Tegretol) 200 Mg Tab 200 MG PO BID, #60 TAB 0 Refills Discharge Time <= 30 minutes Mental Status Examination Appearance: Appropriate Consciousness: Alert Orientation: x4 Motor Activity: Normal gait, Other (No hand tremor, no dystonia, no dyskinesia noted. No other motor abnormalities noted.) Speech: Unremarkable Language: Adequate Fund of Knowledge: Adequate Attention and Concentration: Adequate Memory: Unremarkable Mood: Appropriate Affect: Appropriate Thought Process & Associations: Intact, Logical, Goal directed, Linear Thought Content: Appropriate Hallucination Type: None Delusion Type: None Suicidal Ideation: No Suicidal Plan: No Suicidal Intention: No Homicidal Ideation: No Homicidal Plan: No Homicidal Intention: No Mental Status Exam Remarks Insight and judgment are fair. Discharge/Advance Care Plan Health Problems: (1) Bipolar depression (2) Amphetamine abuse Goals to promote your health * To prevent worsening of your condition and complications * To maintain your health at the optimal level Directions to meet your goals Take your medications as prescribed Follow your dietary instruction Follow activity as directed Keep your appointments as scheduled Take your immunizations and boosters as scheduled If your symptoms worsen call your PCP, if no PCP go to Urgent Care Center or Emergency Room For 16/10 questions related to your inpatient stay or results of tests pending at discharge, please contact Dr. Juan R Bashir at Smoking is Dangerous to Your Health. Avoid second hand smoking Juan R Bashir MD Jul 17, 2017 12:52
== END 2017-07-17 14:55 | disposition home or self-care (01) | DRG 885 ==
LOC: NEPJ 23:37 → NEDA 07-15 11:37 → H260 07-15 22:24
PROVIDERS: ADMIT Psychiatry & Neurology Psychiatry; ATTEND Psychiatry & Neurology Psychiatry
DX: F31.31 Bipolar disorder, current episode depressed, mild (principal); R45.851 Suicidal ideations; G40.909 Epilepsy, unspecified, not intractable, without status epilepticus; F15.10 Other stimulant abuse, uncomplicated; R41.83 Borderline intellectual functioning; Z91.5 Personal history of self-harm; R55 Syncope and collapse
CPT/HCPCS: 80048; 80053; 80061; 80156; 80307; 83036; 84439; 84443; 84703; 85025; 93005

== ENCOUNTER 2017-08-22 20:00 | Emergency (ER) | payer OTHER ==
[~2017-08-22] VITALS: Ht 160 cm; Wt 101.6 kg
[~2017-08-22 20:00] MED LIST changes: -MACR100C2 PO; +SERO50TA PO
[2017-08-22 20:22] VITALS: BP 140/79; PULSE 80; RESP 18; TEMP 98.9; O2SAT 97
--- NOTE | 2017-08-22 20:35 | PD ---
HPI Chief Complaint: Injury Time Seen by Provider: 20:24 Travel History International Travel<30 days: No Contact w/Intl Traveler<30days: No History of Present Illness HPI This is a 26-year-old female here with right ankle pain 2 days. She reports she twisted the ankle while attempting to exit her apartment during a fire alarm. She reports the pain is localized to the posterior and lateral aspect of the ankle. Pain is worse with weightbearing and range of motion. Slightly relieved with rest and elevation. Symptom severity is moderate. Denies altered sensation or weakness of the extremity. No other injuries. PFSH Past Medical History ADHD: No Asthma: No Bipolar Disorder: Yes Depression: Yes Cancer: No Cardiovascular Problems: No Diabetes: No Diminished Hearing: No Endocrine: No Genitourinary: No Immune Disorder: No Musculoskeletal: No Neurologic: Yes Psychiatric: Yes ("BEHAVIORAL") Reproductive: No Respiratory: No Immunizations Current: Yes Migraines: Yes (EVERY DAY) Seizures: Yes (x1) Thyroid Disease: No Ulcer: No Past Surgical History Appendectomy: No Cholecystectomy: No Other Surgery: No Social History Alcohol Use: No Tobacco Use: No Substance Use: Yes (METH) Allergies-Medications (Allergen,Severity, Reaction): Coded Allergies: No Known Allergies (Verified Adverse Reaction, Unknown, 07/14/17) Reported Meds & Prescriptions Reported Meds & Active Scripts Active Seroquel (Quetiapine Fumarate) 50 Mg Tab 50 Mg PO HS 15 Days Reported Amoxicillin 500 Mg Tab 500 Mg PO TID Tegretol (Carbamazepine) 200 Mg Tab 200 Mg PO BID Review of Systems Except as stated in HPI: all other systems reviewed are Neg Physical Exam Narrative GENERAL: Alert, well-appearing 26-year-old female. Patient appears slightly anxious accompanied by her mother SKIN: Warm and dry. HEAD: Normocephalic. Atraumatic EYES: No injection or drainage. NECK: Supple CARDIOVASCULAR: Regular rate and rhythm without murmurs, gallops, or rubs. RESPIRATORY: Breath sounds equal bilaterally. No accessory muscle use. GASTROINTESTINAL: Abdomen soft, non-tender, nondistended. MUSCULOSKELETAL: No cyanosis. RLE: Mild swelling and tenderness to the lateral malleolus and posterior aspect of the ankle over the Achilles tendon. Negative Wagner's test. No obvious deformity. She is able to dorsiflex and plantarflex the foot. No bony tenderness in the foot. Palpable DP pulse. Can freely wiggle the toes. Brisk cap refill Data Data Last Documented VS Vital Signs Date Time Temp Pulse Resp B/P (MAP) Pulse Ox O2 Delivery O2 Flow Rate FiO2 08/22/17 20:22 98.9 80 18 140/79 (99) 97 Orders Orders Ankle, Complete ([id number]) (08/22/17 ) Ibuprofen (Motrin) (08/22/17 20:45) MDM Medical Decision Making Medical Screen Exam Complete: Yes Emergency Medical Condition: Yes Differential Diagnosis Ankle sprain, ankle fracture, Achilles tendon injury Narrative Course 26-year-old female here with ankle pain after twisting injury 2 days ago. The extremity is neurovascularly intact. X-rays ordered and pending X-ray ankle negative for fracture. Satnam wrap applied. Crutches provided. Diagnosis Primary Impression: Ankle sprain Qualified Codes: S93.401A - Sprain of unspecified ligament of right ankle, initial encounter Referrals: Primary Care Physician Additional Instructions: Rest, ice, elevate the extremity. Satnam wrap and crutches as provided. Ibuprofen 800 mg as needed for pain. Scripts Ibuprofen (Ibuprofen) 800 Mg Tab 800 MG PO Q6HR Y for PAIN, #40 TAB 0 Refills Prov: Lory Calvillo 08/22/17 Disposition: 01 DISCHARGE HOME Condition: Stable Lory Calvillo August 22, 2017 20:35
[2017-08-22] MEDS ORDERED: AMOX500T PO (20:38)
[2017-08-22] MEDS ORDERED: IBUPROFEN 800 MG TAB PO ONE (20:45)
--- NOTE | 2017-08-22 20:52 | RADRPT ---
EXAM DATE: 08/22/2017 8:49 PM EDT AGE/SEX: 26 years / Female INDICATIONS: Right posterior ankle pain for 3 days post fall CLINICAL DATA: This is the patient's initial encounter. Patient reports that signs and symptoms have been present for 3 days and indicates a pain score of 8/10. MEDICAL/SURGICAL HISTORY: None. None. COMPARISON: No prior [facility] exams available for comparison. FINDINGS: Bony structures are intact and in normal alignment. Joints are intact without dislocation or signifi cant arthropathy. Osseous density is normal. Soft tissues are unremarkable. No radiopaque foreign bodies seen. CONCLUSION: 1. No acute fracture or dislocation. Electronically signed by: Braden Diaz MD 08/22/2017 8:51 PM EDT
[2017-08-22] MEDS ORDERED: IBUP1TAB7 PO (21:00)
== END 2017-08-22 21:22 | disposition home or self-care (01) ==
LOC: PHEFT 20:00
DX: S93.401A Sprain of unspecified ligament of right ankle, initial encounter (principal); F31.9 Bipolar disorder, unspecified; F15.90 Other stimulant use, unspecified, uncomplicated; X50.1XXA Overexertion from prolonged static or awkward postures, initial encounter; Y92.039 Unspecified place in apartment as the place of occurrence of the external cause; Z79.899 Other long term (current) drug therapy; Z86.69 Personal history of other diseases of the nervous system and sense organs
CPT/HCPCS: 73610; 99283; E0113